=== PATIENT | male | born 1975 | race Caucasian/White ===

== ENCOUNTER → 2020-11-04 | Outpatient (CLI) | payer BC ==
[~2020-11-04] MED LIST: IOHEXOL 240 MG/ML 50ML VIAL. ONE; IOHEXOL 240 MG/ML 50ML VIAL. PO ONE; IOHEXOL 300 MG/ML 75 ML VIAL. IV ONE
[2020-11-04 09:24] LABS: BASO # 0.1 x10^3/uL (0.0-0.2); BASO % 1 % (0-3); EOS # 0.2 x10^3/uL (0.0-0.7); EOS % 2 % (0-3); HEMATOCRIT 43.1 % (39.0-53.0); HEMOGLOBIN 14.8 g/dL (13.0-17.5); LYMPH # 1.5 x10^3/uL (1.0-4.8); LYMPH % 15 % (24-48); MEAN CORPUSCULAR HEMOGLOBIN 31 pg (25-35); MEAN CORPUSCULAR HGB CONC 34 g/dL (31-37); MEAN CORPUSCULAR VOLUME 89 fL (79-100); MONO # 0.8 x10^3/uL (0.0-1.1); MONO % 8 % (0-9); NEUT # 7.3 x10^3uL (1.8-7.7); NEUT % 75 % (31-73); PLATELET COUNT 377 x10^3/uL (140-400); RED BLOOD COUNT 4.84 x10^6/uL (4.30-5.70); RED CELL DISTRIBUTION WIDTH 12.5 % (11.5-14.5); WHITE BLOOD COUNT 9.8 x10^3/uL (4.0-11.0)
[2020-11-04 09:30] LABS: ALBUMIN 3.6 g/dL (3.4-5.0); ALBUMIN/GLOBULIN RATIO 0.8 (1.0-1.7); CALCIUM 9.3 mg/dL (8.5-10.1); GFR 80.4; POTASSIUM 4.1 mmol/L (3.5-5.1); TOTAL BILIRUBIN 0.6 mg/dL (0.2-1.0); TOTAL PROTEIN 8.3 g/dL (6.4-8.2)
--- NOTE | 2020-11-04 09:55 | RAD ---
Exam: CT abdomen/pelvis with intravenous contrast Indication: Lower pelvic and bilateral groin pain radiating to back Comparison: None Technique: Helical CT imaging performed of the abdomen and pelvis after the administration of intrave nous contrast. Sagittal and coronal reformats were obtained. One or more of the following individualized dose reduction techniques were utilized for this examinat ion: 1. Automated exposure control 2. Adjustment of the mA and/or kV according to patient size 3. Use of iterative reconstruction technique. Findings: Lower chest: There is atelectasis in the right middle and lower lobe. Heart is normal in size. Liver: Unremarkable noncontrast appearance of the liver. Gallbladder/Biliary Tree: Normal. Pancreas: Normal. Spleen: Normal. Adrenal Glands: Normal. Kidneys/Ureters/Bladder: Kidneys are normal in size. No hydronephrosis or nephrolithiasis. The ureter s are normal. Bladder is decompressed Reproductive Organs: Prostate gland is normal. Stomach, small bowel, and colon: There are diverticula in the sigmoid colon with wall thickening and moderate pericolonic fat stranding consistent with acute diverticulitis. There is an extraluminal col lection of gas along the sigmoid colon measuring 2.4 x 1.6 cm (image 74, series 2). The rest of the c olon is unremarkable. Stomach is normal. No small bowel obstruction. There is a small duodenal divert iculum. Appendix is normal. Vasculature: No aortic aneurysm. Lymph Nodes: There are small periaortic and mesenteric lymph nodes, likely reactive. Peritoneum and retroperitoneum: Small extraluminal gas collection along the sigmoid colon as above. N o widespread pneumoperitoneum, free fluid or fluid collection. Bones: No acute osseous abnormality. Probable hemangiomas in the iliac bones. Miscellaneous: No abdominal wall or inguinal hernia. Impression: Acute sigmoid diverticulitis with small extraluminal gas collection consistent with conta ined local perforation. FOR INTERNAL CODING PURPOSES Critical result: Findings discussed with Dr. Wilkes's nurse at 11/04/2020 9:51 AM. RESULT CODE: (C) Electronically signed by: Merced Gunter MD (11/04/2020 9:52 AM) [id number]
== END ==
LOC: CT 08:02
PROVIDERS: ATTEND Family Medicine
DX: K57.32 Diverticulitis of large intestine without perforation or abscess without bleeding (principal); K57.10 Diverticulosis of small intestine without perforation or abscess without bleeding; J98.11 Atelectasis; N32.89 Other specified disorders of bladder; K59.00 Constipation, unspecified; R00.0 Tachycardia, unspecified
CPT/HCPCS: 36415; 74177; 80053; 85025; Q9967

== ENCOUNTER → 2020-12-12 | Outpatient (CLI) | payer BC ==
[2020-11-06 08:53] VITALS: BP 125/87
--- NOTE | 2020-12-12 14:38 | RAD ---
INDICATION: Reason: DIVERTICULITIS OF COLON WITH PERFORATION / Spl. Instructions: OMNI 300 75ML / His tory: COMPARISON: November 04, 2020 TECHNIQUE: Axial CT images were obtained through the abdomen and pelvis with intravenous contrast. One or more of the following individualized dose reduction techniques were utilized for this examinat ion: 1. Automated exposure control; 2. Adjustment of the mA and/or kV according to patient size; 3 . Use of iterative reconstruction technique. FINDINGS: Vascular: No abdominal aortic aneurysm. Hepatobiliary: No intrahepatic biliary duct dilation. Pancreas: Small duodenal diverticulum is suspected within the region. Spleen: Spleen unremarkable. Renal: No hydronephrosis. 16 mm suspected left renal cyst again seen. Bladder: Urinary bladder is decompressed with prominence the wall. Gastrointestinal: Colonic diverticulosis is again seen. There is repeat demonstration of a pocket of extraluminal air adjacent to the sigmoid colon but this appears decreased in size compared to prior. Currently measures up to about 22 mm and previously air-fluid portion measuring up to about 40 mm wit h the amount of surrounding inflammatory changes greatly decreased from prior as well. No new region of fluid collection is seen. No periappendiceal inflammatory changes. Degenerative changes the spine with multilevel central canal and neural foraminal stenosis. IMPRESSION: * Small pocket of extraluminal air is again seen adjacent to the sigmoid colon which could be from the patient's previously identified perforated diverticulitis. A small amount of air persists but ove rall this is decreased from prior examination with decreased inflammation surrounding it as well. Electronically signed by: Robbi Amaro MD (12/12/2020 2:36 PM) [id number]
== END ==
LOC: CT 11:41
PROVIDERS: ATTEND Internal Medicine Gastroenterology
DX: K57.20 Diverticulitis of large intestine with perforation and abscess without bleeding (principal); N32.89 Other specified disorders of bladder; K57.30 Diverticulosis of large intestine without perforation or abscess without bleeding; M47.819 Spondylosis without myelopathy or radiculopathy, site unspecified; M48.00 Spinal stenosis, site unspecified
CPT/HCPCS: 74177; Q9967

== ENCOUNTER → 2021-02-14 | Outpatient (CLI) | payer BC ==
[2020-11-06 08:53] VITALS: BP 125/87
[~2021-02-14] MED LIST changes: -IOHEXOL 240 MG/ML 50ML VIAL. PO ONE
--- NOTE | 2021-02-14 14:52 | RAD ---
EXAM: CT Abdomen and Pelvis with IV contrast CLINICAL HISTORY: Reason: DIVERTICULITIS, FREE AIR IN OCTOBER 2020 / Spl. Instructions: OMNI 300 75ML IV, OMNI 240 30ML ORAL / History: . COMPARISON: 12/12/2020 11/04/2020 TECHNIQUE: Helical CT of the abdomen and pelvis was performed following the administration of intrave nous contrast. Axial, coronal and sagittal reformatted images were generated. PQRS compliance statement - One or more of the following individualized dose reduction techniques wer e utilized for this study: 1. Automated exposure control 2. Adjustment of the mA and/or kV according to patient size 3. Use of iterative reconstruction technique FINDINGS: Lower Chest: Lung bases are clear. Abdomen and Pelvis: No focal liver lesion. Gallbladder is normal. No biliary ductal dilatation. Pancreas and spleen are unremarkable. Adrenal glands are normal. Symmetric nephrograms. Left upper pole renal cyst is seen. C ortical thinning left upper pole likely from cortical scarring. No hydronephrosis. No hydroureter. Bl adder is unremarkable. Colonic diverticula are seen. No evidence for acute diverticulitis. Appendix i s normal. No abdominal or pelvic lymphadenopathy. No abdominal or pelvic ascites. The previously seen focus of air adjacent to the colon on 11/04/2020 is no longer seen. No significant associated inflamm atory changes are seen although a prominent diverticulum is seen in this region. Bladder is unremarka ble. Trace fat-containing periumbilical hernia is seen. No aggressive osseous lesion is seen. Mild de generative changes of the lumbar spine. IMPRESSION: Colonic diverticulosis without acute diverticulitis. No free intraperitoneal gas. The previously seen free intraperitoneal gas is no longer seen. Electronically signed by: Christopher Ray MD (02/14/2021 2:49 PM) [email or web address]
== END ==
LOC: CT 08:36
PROVIDERS: ATTEND Internal Medicine Gastroenterology
DX: K57.30 Diverticulosis of large intestine without perforation or abscess without bleeding (principal); N28.1 Cyst of kidney, acquired; K42.9 Umbilical hernia without obstruction or gangrene; M47.816 Spondylosis without myelopathy or radiculopathy, lumbar region
CPT/HCPCS: 74177; Q9967

== ENCOUNTER → 2021-06-20 | Outpatient (CLI) | payer BC ==
[2020-11-06 08:53] VITALS: BP 125/87
--- NOTE | 2021-06-20 13:24 | RAD ---
Gastric Emptying Study 06/20/2021 Indication: Early satiety. Retained food on recent EGD Procedure: Anterior and posterior projection static images are obtained over the stomach following or al administration of 2 mCi of 99 M technetium sulfur colloid in a solid meal (egg and toast). Time po ints include an immediate baseline, and 1, 2, 3, and 4 hours post ingestion. Findings: There is progressive emptying of the stomach on sequential images. Percentage retention at... One hour is 85% (normal 34.8-91%). Two hours 54% (normal 2.7-60%). Three hours 43% (normal 0.5-28%). Four hours 15% (normal 0-10%). Impression: Mildly delayed gastric emptying based on 4 hour time point. Consensus Recommendations for Gastric Emptying Scintigraphy: A Joint Report of the [place] [employer] and the Society of Nuclear Medicine: J. Nucl. Med. Technol. May 14 vol. 36 no. 1 44-54 Grading for severity of delayed GE based on the 4-h value: grade 1 (mild): 11?20% retention at 4 h grade 2 (moderate): 21?35% retention at 4 h grade 3 (severe): 36?50% retention at 4 h grade 4 (very severe): >50% retention at 4 h. Electronically signed by: Nimesh Subramanian MD (06/20/2021 1:21 PM) [id number]
== END ==
LOC: NM 07:56
PROVIDERS: ATTEND Internal Medicine Gastroenterology
DX: K30 Functional dyspepsia (principal); R68.81 Early satiety
CPT/HCPCS: 78264; A9541